=== PATIENT | male | born 1995 | race Two or more races ===

== ENCOUNTER 2024-10-01 13:43 | Emergency (ER) | payer MEDICAID, SELFPAY ==
[2024-10-01 13:43] VITALS: BMI 37.3
[2024-10-01 13:50] VITALS: BP 151/102; PULSE 89; RESP 16; TEMP 36.9; O2SAT 98
[2024-10-01] MEDS: DEXAMETHASONE SOD PHOS INJ 10 MG/ML VIAL IM (13:58)
[2024-10-01] MEDS: DiphenhydrAMINE 25 MG CAPSULE 50 MG PO (13:58)
--- NOTE | 2024-10-01 14:48 | PD.EDALLER ---
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 presents the emergency department today stating that he drank tea with honey and garlic and Katie and after taking that he immediately felt like is having difficulty breathing difficulty swallowing and coughing patient did take Benadryl prior to arrival Limitations: no limitations Related Data Previous Rx's ?Medication ?Instructions ?Recorded diphenhydramine HCl 25 mg capsule 25 mg PO Q8H PRN allergic symptoms 10/01/24 (Benadryl) #30 caps prednisone 10 mg tablet 30 mg (3 x 10 mg) PO BID 3 days 10/01/24 #18 tabs Allergies Allergy/AdvReac Type Severity Reaction Status Date / Time bee venom protein (honey bee) Allergy Verified 10/01/24 13:48 Review of Systems Review of Systems Systems Reviewed: All systems reviewed, normal except as documented Constitutional Constitutional: Reports system reviewed and no additional complaints, except as documented, Denies fever(s) and Denies headache(s) Eyes Eyes: Reports system reviewed and no additional complaints, except as documented and Denies blurry vision ENT Ears, Nose, Mouth, and Throat: Reports system reviewed and no additional complaints, except as documented, Denies headache(s), Denies nasal congestion and Denies nasal discharge Cardiovascular Cardiovascular: Reports system reviewed and no additional complaints, except as documented, Denies chest pain and Denies dyspnea Respiratory Respiratory: Reports system reviewed and no additional complaints, except as documented, Denies chest congestion, Denies cough and Denies dyspnea Gastrointestinal Gastrointestinal: Reports system reviewed and no additional complaints, except as documented and Denies abdominal pain Integumentary/Breasts Skin/Breast: Reports system reviewed and no additional complaints, except as documented and Denies rash Neurologic Neurologic: Reports system reviewed and no additional complaints, except as documented, Reports as per HPI and Denies headache(s) Past Medical History Social History SMOKING STATUS: Current some day smoker ED Exam General Limitations: Present no limitations General appearance: Present alert and in no apparent distress Head Head exam: Present atraumatic, normocephalic and normal inspection Eye Eye exam: Present normal appearance, PERRL and EOMI; Absent conjunctival injection ENT ENT exam: Present normal exam, normal oropharynx and mucous membranes moist Neck Neck exam: Present normal inspection, full ROM and trachea midline Chest Chest inspection: Present normal inspection and symmetric chest wall rise Respiratory Respiratory exam: Present normal lung sounds bilaterally; Absent respiratory distress, wheezes, stridor, accessory muscle use or prolonged expiratory phase Cardiovascular Cardiovascular exam: Present regular rate, normal rhythm and normal heart sounds Abdominal Exam Abdominal exam: Present soft and normal bowel sounds; Absent distention or tenderness Extremities Exam Extremities exam: Present normal inspection and full ROM Back Exam Back exam: Present normal inspection and full ROM Neurological Exam Neurological exam: Present alert, oriented X3, CN II-XII intact, normal gait and reflexes normal; Absent motor sensory deficit Psychiatric Psychiatric exam: Present normal affect and normal mood Skin Skin exam: Present warm, dry, intact and normal color; Absent rash Course Quality Measures none Orders Category Date Time Status Dexamethasone Inj [Decadron Inj] Med 10/01/24 13:54 Discontinued 10 mg IM X1 ONE DiphenhydrAMINE [Benadryl] Med 10/01/24 13:54 Discontinued 50 mg PO X1 ONE Vital Signs Vital signs: Vital Signs Temperature 98.5 F 10/01/24 13:50 Pulse Rate 89 10/01/24 13:50 Respiratory Rate 16 10/01/24 13:50 Blood Pressure 151/102 H 10/01/24 13:50 Pulse Oximetry (%) 98 10/01/24 13:50 Oxygen Delivery Method Room Air 10/01/24 13:50 O2 saturation 98% r/a wnl Allergic Reaction MDM Narrative MDM Narrative:: 29-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 presents the emergency department today stating that he drank tea with honey and garlic and Katie and after taking that he immediately felt like is having difficulty breathing difficulty swallowing and coughing patient did take Benadryl prior to arrival On exam patient well-appearing patient does not appear ill or toxic patient has no evidence of anaphylaxis Patient was given Benadryl and dexamethasone here Patient was observed for approximate 1 hour patient reports that he feels better and would like to be discharged home Patient discharged home in no distress to follow-up with primary care doctor in the next 24 to 48 hours and for any worsening symptoms to return to the ER immediately Patient data External records reviewed:: [facility] previous records Clinical information provided by:: patient Social determinants that could affect healthcare access:: none Patient has the following chronic illnesses:: None How is presenting disease/condition affected by chronic disease/condition?: no chronic disease Evaluation data The following diagnostics were reviewed and interpreted by me:: other (specify) (N/A) Lab and/or radiology exams considered but not ordered:: Consider not ordered Interpretation Summary: N/A Medications / Prescriptions Medications or Prescriptions considered but not ordered:: Given Medication administrations:: Medication Administration History Discontinued Medications Dexamethasone Sodium Phosphate (Dexamethasone Sod Phos Inj 10 Mg/Ml Vial) 10 mg IM X1 ONE Stop: 10/01/24 13:55 Last Admin: 10/01/24 13:58 Dose: 10 mg Documented By: Diphenhydramine HCl (Diphenhydramine 25 Mg Capsule) 50 mg PO X1 ONE Stop: 10/01/24 13:55 Last Admin: 10/01/24 13:58 Dose: 50 mg Documented By: Given Consultations Consultation(s) initiated? (list below): No Diagnosis Differential Diagnosis allergic reaction: anaphylaxis, allergic reaction, adverse reaction to drug, viral enanthem and urticaria Most likely diagnosis given after review of the tests above:: Allergic reaction Admission Indicated Admission indicated?: not indicated Admission Request Was there a request for admission?: No Disposition Plan Disposition Plan: Discharge Discharge Attestation Discharge Attestation: The patient and all family members were given an opportunity to ask questions and understood the discharge instructions. Discharge instructions specifically effects, indications for sooner follow up or return to the emergency department, and the expected course of current diagnosis. Patient condition: Stable Discharge Plan Plan Patient Disposition: HOME (Self Care) Disposition Comment: Stable Prescriptions/Referrals Prescriptions/Med Rec: New prednisone 10 mg tablet 30 mg PO BID 3 Days Qty: 18 0RF diphenhydramine HCl [Benadryl] 25 mg capsule 25 mg PO Q8H PRN (Reason: allergic symptoms) Qty: 30 0RF Problem List Clinical Impression: Allergic reaction Patient/Caregiver Discharge Instructions Education Materials: ED Medicine Reaction: Allergic Additional Instructions: Please follow up with your primary care doctor in the next 24-48hrs for any worsening symptoms return here immediately Print Language: Finnish Stand Alone Forms: Piper Award Info., Patient Portal Info Letter PA/MANAGER [facility] Supervising Physician PA/MANAGER [facility] Supervising Physician: Dr. Swenson
== END 2024-10-01 14:55 | disposition home or self-care (01) ==
LOC: SERX 15:23
PROVIDERS: Emergency Provider Emergency Medicine; PCP Physician Assistant Medical
DX: T78.1XXA Other adverse food reactions, not elsewhere classified, initial encounter (principal); R13.10 Dysphagia, unspecified; R06.00 Dyspnea, unspecified; R05.9 Cough, unspecified; X58.XXXA Exposure to other specified factors, initial encounter
CPT/HCPCS: 96372; 99283; J1100; A9270